=== PATIENT | female | born 1965 | race Hispanic/Latino ===

== ENCOUNTER 2019-05-24 18:11 | Emergency (ER) | payer SELFPAY ==
[~2019-05-24 18:11] MED LIST: Iopamidol-370 76% 500 ML 1 ML ONE
[2019-05-24 19:03] LABS: #Eosinphils 0.1 thou/uL (0.0-0.7); #Lymphocytes 1.8 thou/uL (1.20-3.40); #Monocytes 0.5 thou/uL (0.11-0.59); #Neutrophils 5.3 thou/uL (1.40-6.50); %Basophils 0.5 % (0.0-1.0); %Eosinophils 1.8 % (0.0-10.0); %Lymphocytes 23.3 % (21.0-51.0); %Monocytes 6.5 % (0.0-10.0); %Neutrophils 67.9 % (42.0-75.0); Hemoglobin 10.2 g/dL (12.0-16.0); Mean Corpuscular HGB CONC 32.5 g/dL (32.0-36.0); Mean Corpuscular Hemoglobin 20.3 pg (27.0-31.0); Mean Corpuscular Volume 62.5 fL (78.0-98.0); Mean Platelet Volume 8.5 fL (7.4-10.4); Platelet Count 225 thou/uL (130-400); RBC Distribution Width 15.4 % (11.5-14.5); Red Blood Cell (RBC) Count 5.03 mill/uL (4.20-5.40); White Blood Cell (WBC) Count 7.9 thou/uL (4.8-10.8)
[2019-05-24] MEDS ORDERED: Morphine 4 MG/ML VIAL ONE (19:10)
[2019-05-24] MEDS ORDERED: Ondansetron PF 4 MG/2 ML Vial ONE (19:10)
[2019-05-24 19:25] LABS: ALT (SGPT) 9 U/L (8-55); AST (SGOT) 10 U/L (5-34); Albumin 4.2 g/dL (3.5-5.0); Alkaline Phosphatase 72 U/L (40-110); Anion Gap 9 mmol/L (10-20); BUN (Urea Nitrogen) 19 mg/dL (9.8-20.1); Bilirubin, Total 0.6 mg/dL (0.2-1.2); Calc. Creatinine Clearance 0 mL/min (70-130); Calcium 9.3 mg/dL (7.8-10.44); Carbon Dioxide 27 mmol/L (22-29); Chloride 106 mmol/L (98-107); Estimated GFR-MDRD 85; Globulin 3.8 g/dL (2.4-3.5); Glucose 128 mg/dL (70-105); Lipase 29 U/L (8-78); MDiff Complete? YES; Microcytosis MODERATE=15-30 cells (100X) (0-5/hpf); Ovalocytes SLIGHT = 2-5 cells (100X) (0-1/hpf); Platelet Morphology Comment Appears Adequate; Polychromasia SLIGHT = 2-3 cells (100X) (0-2/hpf); Potassium 4.3 mmol/L (3.5-5.1); Reflex for Review?? YES; Schistocytes SLIGHT = 2-5 cells (100X) (0-1/hpf); Sodium 138 mmol/L (136-145); Target Cells SLIGHT = 2-5 cells (100X) (0-1/hpf); Tear Drops SLIGHT = 2-5 cells (100X) (0-1/hpf)
[2019-05-24 19:26] LABS: BHCG - Serum Negative (NEGATIVE); Pregs Control Background? CLEAR/WHITE (CLR/WHITE); Pregs Control Bar Appear? YES (CONTROL BAR)
--- NOTE | 2019-05-24 20:43 | CT ---
CT ABDOMEN AND PELVIS WITH IV CONTRAST: Date: 05-24-2019 Provided Clinical History: Left flank pain. FINDINGS: Comparison 11-13-13. The visualized lung bases are free of significant opacity. There is a 4 mm left proximal ureteral calculus with mild/moderate left hydronephrosis. No additional urinary tract calculi are evident. The solid abdominal organs demonstrate an otherwise unremarkable CT appearance. Changes of prior cholecystectomy are seen. The appendix appears normal. There is no bowel dilatation, free fluid, or free air. Mild perinephric fat stranding on the left. The osseous structures demonstrate no concerning lytic or blastic lesions. IMPRESSION: 1. 4 mm obstructing left proximal ureteral calculus. POS: CHALO
[2019-05-24 21:56] LABS: Bacteria/HPF None Seen HPF (None Seen); Bilirubin Negative (Negative); Blood, Urine 1+ (Negative); Clarity Clear (Clear); Glucose, Urine (Dipstick) Normal (Negative); Leukocyte Negative Leu/uL (Negative); Nitrite Negative (Negative); Protein, Urine (Dipstick) Negative (Neg-Trace); RBC/HPF 21-50 HPF (0-3); Squamous Epithelial 0-3 HPF (0-3); Urobilinogen Normal mg/dL (Less than 2); WBC/HPF 0-3 HPF (0-3)
[2019-05-24] MEDS ORDERED: HYDROcodone/Acetaminophen 5/325 mg Tablet ONE (22:12)
[2019-05-24] MEDS ORDERED: Ketorolac Tromethamine 30 MG/ML VIAL ONE (22:12)
== END 2019-05-24 22:55 | disposition home or self-care (01) ==
LOC: ERS 18:11
DX: N13.2 Hydronephrosis with renal and ureteral calculous obstruction (principal); E11.9 Type 2 diabetes mellitus without complications; E66.9 Obesity, unspecified; Z79.84 Long term (current) use of oral hypoglycemic drugs; Z79.899 Other long term (current) drug therapy
CPT/HCPCS: 36415; 74177; 80053; 81003; 81015; 83690; 84703; 85025; 85060; 93005; 96361; 96374; 96375; J1885; J2270; J2405; Q9967

== ENCOUNTER 2019-09-18 19:31 | Emergency (ER) | payer SELFPAY ==
[2019-09-18] MEDS ORDERED: diphenhydrAMINE 50 MG/ML VIAL ONE (20:04)
[2019-09-18] MEDS ORDERED: Metoclopramide HCl 10 MG/2 ML VIAL ONE (20:04)
[2019-09-18] MEDS ORDERED: Ketorolac Tromethamine 30 MG/ML VIAL ONE (20:46)
--- NOTE | 2019-09-18 21:41 | CT ---
CT OF THE BRAIN WITHOUT CONTRAST: 09/18/19 COMPARISON: None. HISTORY: Left sided headache that began two days ago. TECHNIQUE: Multiple contiguous axial images were obtained in a CT of the brain without contrast. FINDINGS: The brain is normal in morphology and attenuation without focal lesions or confluent areas of infarct ion. There is no evidence of hydrocephalus, intracranial hemorrhage or extra-axial fluid collections. The calvarium and overlying soft tissues are unremarkable. The visualized paranasal sinuses and mastoid air cells are well aerated. IMPRESSION: No evidence of acute intracranial abnormality. POS: SOLAA
== END 2019-09-18 21:00 | disposition home or self-care (01) ==
LOC: ERS 19:31
DX: R51 Headache (principal); E11.9 Type 2 diabetes mellitus without complications; E66.9 Obesity, unspecified; Z79.84 Long term (current) use of oral hypoglycemic drugs
CPT/HCPCS: 70450; 96365; 96375; J1200; J1885; J2765

== ENCOUNTER 2019-09-20 13:31 | Emergency (ER) | payer OTHER, SELFPAY ==
[2019-09-20] MEDS ORDERED: Ketorolac Tromethamine 30 MG/ML VIAL ONE (14:00)
[2019-09-20] MEDS ORDERED: Ondansetron PF 4 MG/2 ML Vial ONE (14:00)
[2019-09-20 14:07] LABS: #Lymphocytes 1.2 thou/uL (1.20-3.40); #Monocytes 0.4 thou/uL (0.11-0.59); #Neutrophils 2.3 thou/uL (1.40-6.50); %Basophils 0.4 % (0.0-1.0); %Eosinophils 0.3 % (0.0-10.0); %Lymphocytes 30.9 % (21.0-51.0); %Monocytes 9.9 % (0.0-10.0); %Neutrophils 58.5 % (42.0-75.0); Hemoglobin 10.4 g/dL (12.0-16.0); Mean Corpuscular HGB CONC 32.1 g/dL (32.0-36.0); Mean Corpuscular Hemoglobin 20.6 pg (27.0-31.0); Mean Corpuscular Volume 64.1 fL (78.0-98.0); Mean Platelet Volume 6.8 fL (7.4-10.4); Platelet Count 202 thou/uL (130-400); RBC Distribution Width 16.3 % (11.5-14.5); Red Blood Cell (RBC) Count 5.04 mill/uL (4.20-5.40)
[2019-09-20 14:24] LABS: ALT (SGPT) 29 U/L (8-55); AST (SGOT) 24 U/L (5-34); Albumin 4.3 g/dL (3.5-5.0); Alkaline Phosphatase 69 U/L (40-110); Anion Gap 13 mmol/L (10-20); BUN (Urea Nitrogen) 10 mg/dL (9.8-20.1); Bilirubin, Total 0.6 mg/dL (0.2-1.2); Calc. Creatinine Clearance 0 mL/min (70-130); Calcium 8.9 mg/dL (7.8-10.44); Carbon Dioxide 24 mmol/L (22-29); Chloride 107 mmol/L (98-107); Estimated GFR-MDRD Greater than 90; Globulin 3.9 g/dL (2.4-3.5); Glucose 129 mg/dL (70-105); Potassium 3.6 mmol/L (3.5-5.1); Protein, Total 8.2 g/dL (6.0-8.3); Sodium 140 mmol/L (136-145)
[2019-09-20 14:26] LABS: Anisocytosis SLIGHT = 6-15 cells (100X) (0-5/hpf); Basophilic Stippling SLIGHT = 1-2 cells (100X) (None Seen); Hypochromia SLIGHT = 6-15 cells (100X) (0-5/hpf); MDiff Complete? YES; Microcytosis SLIGHT = 6-15 cells (100X) (0-5/hpf); Ovalocytes SLIGHT = 2-5 cells (100X) (0-1/hpf); Platelet Morphology Comment Appears Adequate; Poikilocytosis SLIGHT = 6-15 cells (100X) (0-5/hpf); Polychromasia SLIGHT = 2-3 cells (100X) (0-2/hpf); Reflex for Review?? NO; Target Cells SLIGHT = 2-5 cells (100X) (0-1/hpf); Tear Drops SLIGHT = 2-5 cells (100X) (0-1/hpf)
[2019-09-20 15:12] LABS: Bilirubin Negative (Negative); Blood, Urine Negative (Negative); Clarity Clear (Clear); Glucose, Urine (Dipstick) Normal (Negative); Leukocyte Negative Leu/uL (Negative); Nitrite Negative (Negative); Protein, Urine (Dipstick) Negative (Neg-Trace); Urobilinogen Normal mg/dL (Less than 2)
[2019-09-21 09:58] LABS: SARS-CoV-2 MS2 Positive; SARS-CoV-2 N Gene Positive; SARS-CoV-2 S Gene Positive; SARS-CoV-2 orf1ab Positive
--- NOTE | 2019-09-23 15:34 | EKG ---
Test Reason : Blood Pressure : / mmHG Vent. Rate : 060 BPM Atrial Rate : 060 BPM P-R Int : 164 ms QRS Dur : 092 ms QT Int : 416 ms P-R-T Axes : 012 -11 000 degrees QTc Int : 416 ms Normal sinus rhythm Minimal voltage criteria for LVH, may be normal variant Borderline ECG Confirmed by PREMA DIXON ([id number]), editorial specialist ELIE RADFORD ([id number]) on 09/23/2019 3:33:56 PM Referred By: Confirmed By:PREMA DIXON
== END 2019-09-20 17:22 | disposition home or self-care (01) ==
LOC: ERS 13:31
DX: U07.1 COVID-19 (principal); R11.2 Nausea with vomiting, unspecified; R10.9 Unspecified abdominal pain; E11.9 Type 2 diabetes mellitus without complications; E66.9 Obesity, unspecified; Z79.84 Long term (current) use of oral hypoglycemic drugs
CPT/HCPCS: 80053; 81003; 84484; 85025; 87635; 87804; 93005; 96361; 96374; 96375; J1885; J2405; U0003

== ENCOUNTER 2020-02-04 02:40 | Emergency (ER) | payer SELFPAY ==
[2020-02-04] MEDS ORDERED: Ketorolac Tromethamine 30 MG/ML VIAL ONE (02:50)
[2020-02-04 03:35] LABS: ALT (SGPT) 14 U/L (8-55); AST (SGOT) 11 U/L (5-34); Albumin 3.9 g/dL (3.5-5.0); Alkaline Phosphatase 61 U/L (40-110); Anion Gap 13 mmol/L (10-20); BUN (Urea Nitrogen) 21 mg/dL (9.8-20.1); Bilirubin, Total 0.7 mg/dL (0.2-1.2); Calc. Creatinine Clearance 0 mL/min (70-130); Carbon Dioxide 27 mmol/L (22-29); Chloride 105 mmol/L (98-107); Estimated GFR-MDRD Greater than 90; Globulin 3.5 g/dL (2.4-3.5); Glucose 98 mg/dL (70-105); Lipase 30 U/L (8-78); Protein, Total 7.4 g/dL (6.0-8.3); Sodium 141 mmol/L (136-145)
[2020-02-04 03:39] LABS: Reflex for Review?? YES
[2020-02-04 03:42] LABS: #Basophils 0.1 thou/uL (0.0-0.2); #Eosinphils 0.1 thou/uL (0.0-0.7); #Lymphocytes 2.2 thou/uL (1.20-3.40); #Monocytes 0.5 thou/uL (0.11-0.59); #Neutrophils 4.1 thou/uL (1.40-6.50); %Basophils 0.8 % (0.0-1.0); %Eosinophils 1.8 % (0.0-10.0); %Lymphocytes 31.4 % (21.0-51.0); %Monocytes 7.1 % (0.0-10.0); %Neutrophils 58.9 % (42.0-75.0); Hemoglobin 10.4 g/dL (12.0-16.0); Mean Corpuscular HGB CONC 32.5 g/dL (32.0-36.0); Mean Corpuscular Volume 64.6 fL (78.0-98.0); Mean Platelet Volume 12.7 fL (7.4-10.4); Platelet Count 214 thou/uL (130-400); Red Blood Cell (RBC) Count 4.98 mill/uL (4.20-5.40)
[2020-02-04 03:43] LABS: Anisocytosis SLIGHT = 6-15 cells (100X) (0-5/hpf); MDiff Complete? YES; Microcytosis SLIGHT = 6-15 cells (100X) (0-5/hpf); Ovalocytes SLIGHT = 2-5 cells (100X) (0-1/hpf)
[2020-02-04 04:08] LABS: Bilirubin Negative (Negative); Blood, Urine 3+ (Negative); Clarity Clear (Clear); Glucose, Urine (Dipstick) Normal (Negative); Ketone, Urine Negative (Negative); Leukocyte Negative Leu/uL (Negative); Nitrite Negative (Negative); Protein, Urine (Dipstick) Negative (Neg-Trace); RBC/HPF Greater than 50 HPF (0-3); Specific Gravity, Urine 1.017 (1.002-1.036); Squamous Epithelial 0-3 HPF (0-3); Urobilinogen Normal mg/dL (Less than 2); pH, Urine 5.5 (5.0-9.0)
[2020-02-04 04:10] LABS: Bacteria/HPF 1+ HPF (None Seen)
--- NOTE | 2020-02-04 08:18 | CT ---
PRELIMINARY REPORT/[facility]/EMERGENCY AFTER HOURS PROCEDURE: EXAM: CT Abdomen and Pelvis Without Intravenous Contrast CLINICAL HISTORY: 54-year-old female with history of diabetes presents for left lower quadrant pain similar to prior ki dney stone. Patient states that she has had kidney stones in the past and this pain feels similar. Sh flaquita describes onset of pain approximately 1700 today in the left lower quadrant radiating to the back. No nausea, vomiting, fevers, chills, diarrhea, constipation, chest pain, shortness of breath. Denies any dysuria, hematuria, frequency. Denies any melena or hematochezia. TECHNIQUE: Axial computed tomography images of the abdomen and pelvis without intravenous contrast. CONTRAST: None. COMPARISON: None provided. FINDINGS: LUNG BASES: No basilar airspace consolidation or pleural effusion. LIVER: Punctate calcification within the liver may be related to sequelae of old granulomatous disease. GALLBLADDER AND BILE DUCTS: The gallbladder surgically absent. No ductal dilation. PANCREAS: Unremarkable. SPLEEN: Unremarkable. Splenule near the splenic hilum. ADRENAL GLANDS: Mild nodular thickening of the bilateral adrenal glands. KIDNEYS, URETERS, AND BLADDER: There is a 2.5 mm stone within the posterior right aspect of the urinary bladder near the right UVJ, seen on image 106 of series 601 and image 72 of series 2. There is moderate left hydronephrosis with mild to moderate dilatation of the left ureter. There is mild left perinephric fat stranding. No n ephrolithiasis. No ureteral calculi. Mild wall thickening of the urinary bladder. STOMACH AND BOWEL: Likely 3.5 cm lipoma within the proximal transverse colon, seen on image 32 of series 2 and image 51 of series 601. No obstruction. No wall thickening. No CT evidence of colitis or acute diverticulitis . APPENDIX: The appendix is normal in appearance. No CT evidence for appendicitis. PERITONEUM: No significant free fluid. No free air. LYMPH NODES: No lymphadenopathy. REPRODUCTIVE: Unremarkable as visualized. VASCULATURE: No aortic aneurysm. ABDOMINAL WALL AND SOFT TISSUES: Small fat-containing umbilical hernia. BONES: No acute osseous abnormality. Transitional anatomy at the lumbosacral junction with fibrous fusion o f a left pseudoarticulation at L5-S1, seen on image 125 of series 601. Mild degenerative changes of the spine. IMPRESSION: 1. There is a 2.5 mm stone at the posterior right aspect of the urinary bladder, just distal to the right UVJ. The right renal collecting system is normal in appearance however. 2. Findings involving the left renal collecting system may be related to a recently passed obstructi ve stone. Findings include moderate left hydronephrosis, mild to moderate dilatation of the left ure ter, and mild left perinephric fat stranding. 3. Mild wall thickening of the urinary bladder may be related to cystitis, however may also be relat ed to slight underdistention. 4. Findings favored to represent a 3.5 cm lipoma within the proximal transverse colon. Consider cor relation with any prior imaging or colonoscopy. ELECTRONICALLY SIGNED BY: Jeremias Chung MD Feb 04, 2020 3:30:36 AM CDT This report is intended for review by the ordering physician only, in accordance of law. If you recei ve this report in error, please call [facility] at [phone]. FINAL REPORT EMERGENCY AFTER HOURS CT ABDOMEN AND PELVIS WITHOUT CONTRAST: FINDINGS/IMPRESSION: I agree with the findings and impression given in the preliminary report per [facility] physici an. 1. There is a calcification at the right ureterovesical junction without significant enlargement of the right renal collecting system. 2. There is dilatation of the left renal collecting system, which may be secondary to recently passe d stone. POS: EAA
== END 2020-02-04 04:25 | disposition home or self-care (01) ==
LOC: ERS 02:40
DX: N13.2 Hydronephrosis with renal and ureteral calculous obstruction (principal); E11.9 Type 2 diabetes mellitus without complications; E66.9 Obesity, unspecified; Z79.84 Long term (current) use of oral hypoglycemic drugs; Z79.899 Other long term (current) drug therapy
CPT/HCPCS: 36415; 74176; 80053; 81003; 81015; 83690; 85025; 85060; 87086; 96361; 96374; J1885

== ENCOUNTER 2022-04-04 11:18 | Emergency (ER) | payer OTHER, SELFPAY ==
[2022-04-04] MEDS ORDERED: Ketorolac Tromethamine 30 MG/ML VIAL ONE (13:58)
== END 2022-04-04 14:40 | disposition home or self-care (01) ==
LOC: ERS 11:18
DX: M54.50 Low back pain, unspecified (principal); M25.512 Pain in left shoulder; E11.9 Type 2 diabetes mellitus without complications; Z79.84 Long term (current) use of oral hypoglycemic drugs; Z79.899 Other long term (current) drug therapy; X50.0XXA Overexertion from strenuous movement or load, initial encounter
CPT/HCPCS: 96372; J1885